=== PATIENT | female | born 1950 | race Caucasian/White ===

== ENCOUNTER 2017-12-15 13:21 | Outpatient (CLI) | payer MEDICARE, OTHER ==
[~2017-12-15 13:21] MED LIST: Gadobenate Dimeglumine 529 MG/1 ML (20ML VIAL) ONE
--- NOTE | 2017-12-15 16:34 | RAD ---
LUMBAR SPINE THREE VIEWS: 12/15/17 HISTORY: 67-year-old female with history of low back pain following a fall off bed one month ago with back tara n and left leg pain. COMPARISON: 01/17/15. FINDINGS: Multilevel disc osteophytosis with fairly marked disc space narrowing at L4-5 showing some progressio n from the prior study. No evidence for abnormal translation between flexion and extension. No eviden ce for acute fracture. IMPRESSION: Evidence for spondylosis with progressive narrowing at L4-5. No abnormal translation between flexion and extension. POS: [facility]
--- NOTE | 2017-12-16 09:24 | MRI ---
LUMBAR SPINE MRI WITH AND WITHOUT CONTRAST: INDICATIONS: Fall with low back pain. Left radiculopathy. FINDINGS: No acute compression fracture. No significant subluxation. The conus medullaris terminates at the T 12-L1 level. There is no acute disk space edema. There is mild marrow edema, localizing to the left posterior elements of L4, nonspecific. There is associated marrow enhancement of this region. Ther e is prior posterior decompression of L4-L5 and L5-S1. Multilevel bilateral degenerative facet hyper trophy is present, most pronounced at the lower lumbar spine, moderate in degree. Incidental note of small cysts of each kidney, incompletely evaluated. L5-S1: No significant compromise of the central canal or the neural foramina. L4-L5: No significant compromise of the central canal. There is a disk osteophyte complex with mild narrowing of each neural foramen, when combined with facet hypertrophy. L3-L4: There is a broad-based disk osteophyte, with a superimposed left subarticular zone disk protr usion, which obliterates the traversing left L4 nerve root and produces moderate left foraminal steno sis. Mild narrowing of the right neural foramen. There is moderate to severe central canal stenosis . L2-L3: There is a right subarticular disk protrusion impinging the traversing right L3 nerve root. Mild central canal stenosis is present. Minimal narrowing of each neural foramen is seen. L1-L2: No high grade compromise of central canal or neural foramina. IMPRESSION: 1. Prominent disk protrusions at the L2-3 and L3-L4 levels, as discussed above, with associated impi ngement upon traversing nerve roots. 2. Nonspecific edema and enhancement involving marrow of the left posterior elements of L4. This is at an operative site and, therefore, could relate to degenerative marrow edema from altered biomecha nics. Correlate clinically in this regard. 3. Small bilateral renal cysts are incompletely evaluated. POS: [facility]
== END 2017-12-15 13:22 | disposition home or self-care (01) ==
LOC: SCSMRI 13:21
PROVIDERS: ATTEND Neurological Surgery
DX: M47.26 Other spondylosis with radiculopathy, lumbar region (principal); M48.061 Spinal stenosis, lumbar region without neurogenic claudication; M51.16 Intervertebral disc disorders with radiculopathy, lumbar region; N28.1 Cyst of kidney, acquired
CPT/HCPCS: 72100; 72158; 82565; A9579

== ENCOUNTER 2018-10-30 11:45 | Inpatient (IN) | payer MEDICARE, OTHER ==
[2018-10-30 12:08] LABS: #Basophils 0.1 thou/uL (0.0-0.2); #Eosinphils 0.2 thou/uL (0.0-0.7); #Lymphocytes 2.7 thou/uL (1.20-3.40); #Monocytes 0.7 thou/uL (0.11-0.59); #Neutrophils 2.4 thou/uL (1.40-6.50); %Basophils 1.4 % (0.0-1.0); %Eosinophils 2.9 % (0.0-10.0); %Lymphocytes 44.3 % (21.0-51.0); %Monocytes 10.9 % (0.0-10.0); %Neutrophils 40.5 % (42.0-75.0); Mean Corpuscular HGB CONC 33.9 g/dL (32.0-36.0); Mean Corpuscular Volume 91.3 fL (78.0-98.0); Mean Platelet Volume 6.6 fL (7.4-10.4); Platelet Count 301 thou/uL (130-400); RBC Distribution Width 12.2 % (11.5-14.5); Red Blood Cell (RBC) Count 4.52 mill/uL (4.20-5.40)
--- NOTE | 2018-10-30 12:13 | RAD ---
EXAM: CHEST ONE VIEW HISTORY: Dizziness and chest pain COMPARISON: 08/29/2016 FINDINGS: The cardiac silhouette and pulmonary vasculature is within normal limits. The lungs are clear. Postsu rgical changes right shoulder are again seen. Degenerative changes are seen in the spine. Bilateral breast prostheses are noted. IMPRESSION: No acute cardiopulmonary process.
[2018-10-30] MEDS ORDERED: Magnesium 2 GM/50 ML BAG (IN WATER) ONE (12:25)
[2018-10-30 12:29] LABS: ALT (SGPT) 14 U/L (8-55); AST (SGOT) 14 U/L (5-34); Albumin 4.1 g/dL (3.4-4.8); Alkaline Phosphatase 88 U/L (40-150); Anion Gap 9 mmol/L (10-20); BUN (Urea Nitrogen) 16 mg/dL (9.8-20.1); Bilirubin, Total 0.4 mg/dL (0.2-1.2); CK (CPK) 63 U/L (29-168); Calc. Creatinine Clearance 0 mL/min (70-130); Calcium 9.9 mg/dL (7.8-10.44); Carbon Dioxide 27 mmol/L (23-31); Chloride 106 mmol/L (98-107); Estimated GFR-MDRD 46; Globulin 2.5 g/dL (2.4-3.5); Glucose 118 mg/dL (80-115); Potassium 3.8 mmol/L (3.5-5.1); Protein, Total 6.6 g/dL (6.0-8.3); Sodium 138 mmol/L (136-145)
[2018-10-30] MEDS ORDERED: Aspirin Chewable 81 MG TAB ONE (12:35)
[2018-10-30] MEDS ORDERED: Digoxin 0.5 MG/2 ML AMP ONE (12:35)
[2018-10-30] MEDS ORDERED: ISOVUE-370 76%-LOCM 1 ML ONE (12:47)
[2018-10-30 12:50] LABS: CKMB 2.4 ng/mL (0-6.6)
--- NOTE | 2018-10-30 13:15 | CT ---
EXAM: CT pulmonary angiogram with IV contrast and 3-D MIP reconstructions PROVIDED CLINICAL HISTORY: Chest pain COMPARISON: None FINDINGS: There is no evidence for central or segmental pulmonary embolus. The lungs are free of significant op acity. No pleural fluid or pneumothorax apparent. No evidence for thoracic lymph node enlargement. The airway appears patent and of normal caliber. The visualized portions of the upper abdomen demonst rate no acute findings. The osseous structures demonstrate no concerning lytic or blastic lesions. Bilateral breast implants with intracapsular rupture on the right. IMPRESSION: No evidence for central or segmental pulmonary embolus.
[2018-10-30] MEDS ORDERED: Metoprolol Tartrate 5 MG/5 ML VIAL ONE (13:28)
[2018-10-30] MEDS ORDERED: Cefepime 1 GM VIAL ONE (13:28)
[2018-10-30] MEDS ORDERED: Enoxaparin Sodium 80 MG/0.8 ML SYRINGE ONE (14:10)
[2018-10-30] MEDS ORDERED: Ondansetron PF 4 MG/2 ML Vial IVP PRN (15:40)
[2018-10-30 15:49] VITALS: BMI 27.7
[2018-10-30 16:17] LABS: Troponin I 0.221 ng/mL (< 0.028)
[2018-10-30] MEDS: Acetaminophen/Codeine 30-300mg Tablet PO PRN (16:51)
[2018-10-30] MEDS: Carvedilol 3.125 MG TAB PO SCH (18:08)
[2018-10-30] MEDS: Digoxin 0.5 MG/2 ML AMP SLOW IVP SCH (18:10)
--- NOTE | 2018-10-30 18:34 | HP ---
CHIEF COMPLAINT: Weakness and dizziness. HISTORY OF PRESENT ILLNESS: The patient is a 68-year-old female, who started feeling dizzy and weak last night. She was not short of breath. She did not have any chest pain, but she started having some back pain in her both scapular area. She took some antacids because she was feeling nauseated and went to bed, and she woke up feeling better, but when she got up and started moving around, she started having heart palpitations, and she came to the emergency room and was evaluated, and she was found to be in atrial fibrillation with RVR. She has a history of previous atrial fibrillations. She denied any vomiting. She denied any abdominal pain, but she had some chest tightness. Her primary care physician is Dr. Rusty Randhawa, and Dr. Guardado is her model and dye person. PAST MEDICAL HISTORY: Positive for; 1. History of atrial fibrillation. 2. Irritable bowel syndrome. PAST SURGICAL HISTORY: 1. Shoulder surgery on the right side. 2. Lumbar laminectomy. 3. Tubal ligation. 4. Appendectomy. 5. Breast implant surgery. PSYCHIATRIC HISTORY: Depression and anxiety. SOCIAL HISTORY: She never smoked. She never had any illicit drugs. She does not drink alcohol. FAMILY HISTORY: Positive for coronary artery disease and stroke. ALLERGIES: POISON RUBENS. CURRENT MEDICATIONS: None. Only vitamins. REVIEW OF SYSTEMS: A 12-point review of systems was done and it was negative except for those mentioned in the HPI. PHYSICAL EXAMINATION: VITAL SIGNS: Blood pressure is 109/85, pulse is 109, respiratory rate is 15. She is afebrile. HEENT: Her head is atraumatic and normocephalic. Eyes are PERRLA. Sclerae are nonicteric. Oral mucosa is moist. NECK: Supple. LUNGS: Clear. HEART: S1 and S2, irregularly irregular. No S3. No S4. ABDOMEN: Soft and nontender. Bowel sounds are present. No organomegaly. EXTREMITIES: No clubbing, cyanosis, or edema. Pulses on both tibialis posterior and dorsalis pedis arteries are similar bilaterally, good. NEUROLOGIC: She is alert and oriented x4. There are no any motor or sensory deficits. Cranial nerves are intact. LABORATORY DATA: Showed normal CBC and normal electrolytes. BUN of 16, creatinine 1.17. Troponin-I 0.227. BNP 588.4. Electrocardiogram personally reviewed by me, showed a ventricular rate of 141, atrial fibrillation. IMAGING STUDIES: Chest x-ray personally reviewed by me showed no acute cardiopulmonary process. A CT angiogram of the chest personally reviewed by me showed no evidence of central or segmental pulmonary embolus. There was some evidence of bilateral breast implants with intracapsular rupture on the right. IMPRESSION: 1. Recurrent atrial fibrillation with RVR. 2. Renal insufficiency, most likely this is prerenal, at least it is a new finding since her creatinine was 0.77 in August 2016. 3. Irritable bowel syndrome. 4. Elevated troponin-I at 0.227, which is most likely related to fast atrial fibrillation and elevated BNP level at 588.4, which is again most likely related to atrial fibrillation with RVR. PLAN: Full admission to the telemetry floor. Condition is fair. Activity, bedrest and bathroom privileges. IV normal saline 100 mL/hour. We will see whether hydration is going to help her creatinine to come down. We will continue her Lovenox, she was started, first dose in the emergency room and we will keep her on 80 mg twice a day with partial dose at 2100 hours today. The patient received a labetalol and magnesium and 0.5 of digoxin, we will continue digoxin two additional doses at 0.25 q.6 hours, then she will be on 0.25 p.o. dose in the morning. Cardiology is consulted and the emergency room doctor talked to Dr. Guardado about her. The patient was not on Cardizem because she was hypotensive. We are going to use SCDs. Job ID: [id number]
--- NOTE | 2018-10-30 18:34 | CON ---
DATE OF CONSULTATION: 10/30/2018 INDICATION FOR CONSULTATION: A 68-year-old female with atrial fibrillation with rapid ventricular response. HISTORY OF PRESENT ILLNESS: This very pleasant 68-year-old female, who has had history of atrial fibrillation in the past and underwent cardioversion, had been maintained on sinus rhythm. She had been maintained just on medical management. She was not on any significant antiarrhythmics and also the anticoagulation, I believe, had been held for some time now. She had been doing very well, and then, last night, she had noted she felt somewhat jittery and became short of breath and noticed that she had some discomfort between the intrascapular areas and was brought to the emergency room, was found to be in atrial fibrillation with rapid ventricular response. At this time, she remains in atrial fibrillation and is under better rate control with medical management at this time. Presently, she has been given digoxin. She has also been given dose of Lovenox. She is also on Coreg. She was given 5 mg of IV metoprolol in the emergency room and the heart rate is under better control, but she still remains in atrial fibrillation. Her EKG shows some minor nonspecific changes when she had atrial fibrillation with a rapid ventricular response, but no ST-segment elevation was noted. These are nonspecific changes with some T-wave flattening. Her cardiac enzymes also were slightly elevated, but most likely this is also associated with the atrial fibrillation. Troponin I was 0.227 and decreased down to 0.221. Her BNP was slightly elevated at 588. She has not had a repeat echocardiogram, this will be performed. We will evaluate the echo when it is available, to see the size of the left atrium and also left ventricular systolic function. At this time, we will continue to control the heart rate. At some point in time, she will need to undergo stress testing due to the abnormal EKG changes, and if there are any abnormalities, we will need to undergo cardiac catheterization. We will check this when she is more stable. She will have stress testing as well as the echocardiogram. PAST MEDICAL HISTORY: Please refer the notes dictated by the nurse practitionerBeth. SOCIAL HISTORY: Please refer the notes dictated by the nurse practitionerBeth. FAMILY HISTORY: Please refer the notes dictated by the nurse practitionerBeth. REVIEW OF SYSTEMS: Please refer the notes dictated by the nurse practitionerBeth. ALLERGIES: PLEASE REFER THE NOTES DICTATED BY THE NURSE PRACTITIONER, BETH GOLDEN. MEDICATIONS: Please refer the notes dictated by the nurse practitioner, Beth Golden. PHYSICAL EXAMINATION: GENERAL: Reveals a well-developed, well-nourished female, who is in no acute distress. VITAL SIGNS: At this time, she is afebrile. Heart rate is in the 90 to 100 range, respiratory rate is 17, O2 saturation is 95%, blood pressure is 114/68. HEENT: Unremarkable. NECK: Carotid pulses are present. I do not hear any bruits. CHEST: Actually clear to auscultation. I do not hear any rales, rhonchi, or wheezing. CARDIOVASCULAR: Irregular. I do not hear any gross murmurs. ABDOMEN: Soft, flat, nontender. Positive bowel sounds are present. EXTREMITIES: Showed no clubbing, cyanosis, or edema. Pedal pulses are present. NEUROLOGIC: She appears to be fully intact. SKIN: Warm and dry. IMAGING STUDIES: EKG as noted above. LABORATORY DATA: Also for pertinent findings, is also noted for the troponin I and for the BNP. IMPRESSION: 1. Atrial fibrillation with rapid ventricular response. She will be treated with medical management. She has been placed on digoxin. She was given IV beta-blockers. We will continue the beta-blockers, and we will switch over to p.o. oral anticoagulation. Most likely, she will need to undergo a repeat cardioversion and will be maintained on antiarrhythmic medications. When she converts and also if she is unable to control the rate, we will discuss her case with superintendent mechanical for possible ablation of the atrial fibrillation. 2. Slight elevation of the cardiac enzymes, which could be a type 2 myocardial infarction, but most likely this is due to demand ischemia associated with tachycardia. 3. Elevated BNP, which may also be due to some diastolic dysfunction or mild congestive heart failure associated with a rapid ventricular response. As far as her other medical issues are concerned, we will continue to follow her and monitor her very carefully. We will be more than happy to continue to follow the patient with you. Job ID: [id number]
[2018-10-30] MEDS ORDERED: Metoprolol Tartrate 5 MG/5 ML VIAL IVP PRN (18:43)
[2018-10-30] MEDS ORDERED: Digoxin 0.5 MG/2 ML AMP SLOW IVP SCH (20:00)
[2018-10-30 20:11] LABS: Troponin I 0.249 ng/mL (< 0.028)
[2018-10-30] MEDS ORDERED: Enoxaparin Sodium 40 MG/0.4 ML SYRINGE SC SCH ×2 (21:00)
[2018-10-31] MEDS: Digoxin 0.5 MG/2 ML AMP SLOW IVP SCH (00:29)
[2018-10-31 04:11] LABS: Anion Gap 7 mmol/L (10-20); BUN (Urea Nitrogen) 12 mg/dL (9.8-20.1); Calc. Creatinine Clearance 79 mL/min (70-130); Calcium 8.6 mg/dL (7.8-10.44); Carbon Dioxide 28 mmol/L (23-31); Chloride 108 mmol/L (98-107); Eosinophils 5 % (0-10); Estimated GFR-MDRD 64; Glucose 91 mg/dL (80-115); Lymphocytes 52 % (21-51); MDiff Complete? YES; Mean Corpuscular HGB CONC 33.7 g/dL (32.0-36.0); Mean Corpuscular Hemoglobin 31.1 pg (27.0-31.0); Mean Corpuscular Volume 92.1 fL (78.0-98.0); Mean Platelet Volume 6.8 fL (7.4-10.4); Monocytes 6 % (0-10); Neutrophil 37 % (42-75); Platelet Count 260 thou/uL (130-400); Platelet Morphology Comment Appears Adequate; Red Blood Cell (RBC) Count 4.19 mill/uL (4.20-5.40); Sodium 139 mmol/L (136-145); White Blood Cell (WBC) Count 5.8 thou/uL (4.8-10.8)
[2018-10-31] MEDS ORDERED: Digoxin 0.5 MG/2 ML AMP SLOW IVP SCH (06:45)
[2018-10-31] MEDS: Acetaminophen/Codeine 30-300mg Tablet PO PRN (08:45)
[2018-10-31] MEDS: Furosemide 20 MG TAB PO SCH (08:47)
[2018-10-31] MEDS: Enoxaparin Sodium 80 MG/0.8 ML SYRINGE SC SCH ×2 (08:47→20:11)
[2018-10-31] MEDS: Carvedilol 3.125 MG TAB PO SCH ×2 (08:48→16:19)
[2018-10-31] MEDS ORDERED: Enoxaparin Sodium 80 MG/0.8 ML SYRINGE SC SCH (09:00)
[2018-10-31] MEDS ORDERED: Enoxaparin Sodium 40 MG/0.4 ML SYRINGE SC SCH (09:00)
[2018-10-31] MEDS ORDERED: Digoxin 0.25 MG TAB PO SCH (09:00)
[2018-10-31 10:19] LABS: Troponin I 0.233 ng/mL (< 0.028)
--- NOTE | 2018-10-31 11:30 | PRG ---
DATE OF SERVICE: 10/31/2018 SUBJECTIVE: The patient is seen and examined at the bedside. She converted to sinus rhythm this morning at 7 o'clock. She feels good. Does not have much complaints to offer. She just had echocardiogram done and she is scheduled for a stress test today. OBJECTIVE: VITAL SIGNS: Blood pressure is 122/65, pulse is 62, temperature is 97.0, respirations 16, and O2 saturation is 97% on room air. HEENT: Head is atraumatic and normocephalic. Eyes are PERRLA. Sclerae are nonicteric. Oral mucosa is moist. NECK: Supple. LUNGS: Clear. HEART: S1 and S2 normal. No S3. No S4. ABDOMEN: Soft, nontender, and nondistended. EXTREMITIES: No clubbing, cyanosis, or edema. NEUROLOGIC: She is alert and oriented x4. There is no any motor or sensory deficits. LABORATORY DATA: White count of 5.8, hemoglobin 13.0, hematocrit 38.6, and platelet count is 260,000. Sodium 139, potassium 4.0, chloride 108, CO2 of 28, BUN 12, and creatinine 0.87. Troponin is 0.249 and 0.233. Third generation TSH was 1.42. IMPRESSION: 1. Recurrent atrial fibrillation converted to sinus rhythm. She is supposed to have a stress test today and echo was just finished. 2. Renal insufficiency, resolved. 3. Irritable bowel syndrome. 4. Elevated troponins secondary to atrial fibrillation, most likely. PLAN: Plan is to continue her monitoring on telemetry floor and discontinue IV fluids. Continue her digoxin. Continue her full dose of Lovenox. She was started on Coreg yesterday and we are going to continue that. Job ID: [id number]
--- NOTE | 2018-10-31 12:25 | PDOC.CPN ---
- Subjective Date: 10/31/18 Time: 12:29 Interval history: The pt seen and examined. No overnight events. No cardiac complaints. - Objective Allergies/Adverse Reactions: Allergies Allergy/AdvReac Type Severity Reaction Status Date / Time nickel Allergy Rash Verified 10/30/18 15:44 Visit Medications: Current Medications Acetaminophen/Codeine Phosphate (Tylenol #3) 1 tab PO Q6H PRN PRN Reason: Mild-Moderate Pain (1-5) Last Admin: 10/31/18 08:45 Dose: 1 tab Carvedilol (Coreg) 3.125 mg PO BID-WM [facility] Last Admin: 10/31/18 08:48 Dose: 3.125 mg Digoxin (Lanoxin) 0.25 mg PO DAILY [facility] Enoxaparin Sodium (Lovenox) 80 mg SC 0900,2099 [facility] Last Admin: 10/31/18 08:47 Dose: 80 mg Furosemide (Lasix) 20 mg PO DAILY [facility] Last Admin: 10/31/18 08:47 Dose: 20 mg Ondansetron HCl (Zofran) 4 mg IVP Q6H PRN PRN Reason: Nausea/Vomiting Vital Signs & Weight: Vital Signs Temp Pulse Resp BP Pulse Ox 10/31/18 11:03 97.8 F 65 15 116/56 L 100 10/31/18 08:17 97.0 F L 62 16 123/65 97 10/31/18 06:40 117 H 10/31/18 04:00 98.5 F 78 18 118/84 98 10/31/18 00:29 95 Weight 182 lb 9 oz - Physical Exam General: alert & oriented x3 Neck: supple neck Cardiac: regular rate and rhythm, S1/S2 Lungs: clear to auscultation Neuro: cranial nerve 2-12 intact Abdomen: unremarkable Skin: clear Musculoskeletal: normal range of motion - Labs Result Diagrams: 10/31/18 03:26 10/31/18 03:26 Troponin/CKMB CK-MB (CK-2) 2.4 ng/mL (0-6.6) 10/30/18 11:58 Troponin I 0.233 ng/mL (< 0.028) H 10/31/18 03:26 - Telemetry Sinus rhythms and dysrhythmias: sinus rhythm - Assessment/Plan Assessment/Plan: 1. recurrent Aifb with RVR - converted back to SR at 0700 this AM; On Digoxin 0.25mg po qd and Coreg 3.125mg BID; On Lovenox 80mg BID, which will be changed to PO OAC at discharge 2. elevated BNP - stable with RA; asymptomatic; Echo result is pending at this time; On Bblocker and Lasix 20mg qd; may start JESSICA/ARB with stable VS MAR reviewed * She was on flecainide 50mg BID and Xarelto at 1st afib episode Pt. seen and eval. by me. I agree with the A/p by the [employer]. Chest clear. RRR. gjm
[2018-11-01 06:01] LABS: #Eosinphils 0.3 thou/uL (0.0-0.7); #Lymphocytes 2.1 thou/uL (1.20-3.40); #Monocytes 0.6 thou/uL (0.11-0.59); #Neutrophils 2.1 thou/uL (1.40-6.50); %Basophils 0.5 % (0.0-1.0); %Eosinophils 5.3 % (0.0-10.0); %Lymphocytes 41.3 % (21.0-51.0); %Monocytes 11.9 % (0.0-10.0); %Neutrophils 41.1 % (42.0-75.0); Hemoglobin 13.2 g/dL (12.0-16.0); Mean Corpuscular Hemoglobin 30.9 pg (27.0-31.0); Mean Corpuscular Volume 90.6 fL (78.0-98.0); Platelet Count 252 thou/uL (130-400); RBC Distribution Width 11.8 % (11.5-14.5); Red Blood Cell (RBC) Count 4.29 mill/uL (4.20-5.40); White Blood Cell (WBC) Count 5.1 thou/uL (4.8-10.8)
[2018-11-01] MEDS: Furosemide 20 MG TAB PO SCH (06:01)
[2018-11-01] MEDS: Enoxaparin Sodium 80 MG/0.8 ML SYRINGE SC SCH (06:01)
[2018-11-01 06:26] LABS: Anion Gap 10 mmol/L (10-20); BUN (Urea Nitrogen) 15 mg/dL (9.8-20.1); Calc. Creatinine Clearance 87 mL/min (70-130); Calcium 9.1 mg/dL (7.8-10.44); Carbon Dioxide 27 mmol/L (23-31); Chloride 105 mmol/L (98-107); Estimated GFR-MDRD 72; Glucose 88 mg/dL (80-115); Potassium 4.2 mmol/L (3.5-5.1); Sodium 138 mmol/L (136-145)
--- NOTE | 2018-11-01 08:17 | CON ---
DATE OF CONSULTATION: PRIMARY CARE DOCTOR: Dr. Randhawa. PRIMARY OUTPATIENT RECEPTIONIST: Eloisa Guardado MD REASON FOR CARDIOLOGY CONSULT: Recurrent atrial fibrillation with rapid ventricular response. HISTORY OF PRESENT ILLNESS: Ms. Toro is 68-year-old female with a significant history of atrial fibrillation with cardioversion in 2012 and hyperlipidemia. The patient was doing relatively well. The patient had a history of atrial fibrillation with rapid ventricular response, status post cardioversion in 2013. Since then, she was doing well. No recurrent atrial fibrillation. She was taking the medication to suppress the patient's atrial fibrillation, which was discontinued about two years ago since she was continued to be in sinus rhythm. She was doing relatively well. She was busy at work and with christianity activities. However, since last night, she started having chest pain between the shoulder blade with nausea, fluttering in her chest. After she took the aspirin 2 tablets, she slept well, but this morning, she is still feeling weak and when she checked the vital signs, her blood pressure has been in the 70 to 80s in systolic with heart rate of 50 to 110s. She is drinking plenty of fluids. However, she continued feeling weak, so the patient presented to the emergency department for further evaluation and treatment. The patient was found to have atrial fibrillation with rapid ventricular response with heart rate 140. After she received digoxin 0.5 mg one time and metoprolol 5 mg IV push. The patient's heart rate went back to 90 to 100. Her vital signs at the ER have pain 100 to 110s over 60s to 80s. At this moment, the patient denies chest pain, heaviness, tightness, shortness of breath, nauseated, palpitation, or fluttering in her chest. She complained of mild dizziness with quick movement. The patient had echocardiogram done in 2012 for history of atrial fibrillation at that time. EF was 50% to 55%, mild mitral valve regurgitation, mild tricuspid regurgitation, atherosclerosis in the descending order. The patient had a stress test done in 2012, which was normal. PAST MEDICAL HISTORY: Atrial fibrillation in 2013, status post cardioversion; irritable bowel syndrome; hyperlipidemia; spinal stenosis; and tubal . SURGICAL HISTORY: 1. Cardioversion in 2013 for a history of atrial fibrillation. 2. Right shoulder surgery for torn rotator cuff. 3. Appendectomy. 4. Back surgery, L4-L5. 5. Tonsillectomy. 6. Breast surgery. FAMILY HISTORY: There is significant medical history of hypertension in her maternal side and the patient's mother has a history of diabetes also. SOCIAL HISTORY: She is . She is living with her . She has 3 children living well. She denied tobacco, EtOH, or illicit drug abuse. She drinks three cups of coffee in the morning. She drinks tons of flavored water through the day. She does not do exercise, but she is being active at home, work and christianity activities. ALLERGIES: SHE IS ALLERGIC TO NICKEL. HOME MEDICATIONS: She does not take any prescribed medication. She takes multivitamin and supplement at home. REVIEW OF SYSTEMS: 12-point review of systems is negative unless otherwise mentioned in the HPI. PHYSICAL EXAMINATION: VITAL SIGNS: Blood pressure 114/68, temperature 98.1, pulse is 97 with atrial fibrillation, respiratory rate 17, and O2 saturation 95% on room air. GENERAL: The patient is alert and oriented x4, not in acute distress. HEENT: Head, normocephalic and atraumatic. Eyes; extraocular muscle movement intact. ENT and mouth, oral and nasal mucosa moist without lesion. NECK: Supple. Normal range of motion. No JVD. RESPIRATORY: Clear to auscultate bilaterally. No wheezing, rales, or rhonchi noted. CARDIOVASCULAR: Irregularly irregular. No S3 or S4. No significant murmur, hives, or thrill noted. 2+ pulses in bilateral lower extremity. No edema in lower extremities. Carotid pulses are present without bruits or thrill. ABDOMEN: Soft, nontender. No mass to palpitate. Bowel sounds are present. MUSCULOSKELETAL: The patient is able to move all extremities. The patient denied claudication. SKIN: Warm and dry. No lesion, rash, or erythema noticed. PSYCHIATRIC: The patient's mood is appropriate. NEUROLOGIC: The patient is alert and oriented x4. Nonfocal. LABORATORY DATA: WBC 6.0, hemoglobin 14.0, hematocrit 41.3, platelet of 301. Sodium 138, potassium 3.8, BUN 16, creatinine 1.17, glucose 118, AST 14, ALT 14. BNP is 588. CK-MB 2.4. Troponin 0.227 and the second one 0.221. The patient's chest thoracic CTA shows no evidence of central segment of pulmonary embolism. The patient's chest x-ray shows no acute cardiopulmonary process. 12-lead EKG at the ER showed atrial fibrillation with heart rate 140s. No ST-segment change or T-wave inversion. The telemetry record at this moment showing the patient has atrial fibrillation with heart rate in 90s to [address]-segment change or T-wave inversion. ASSESSMENT AND PLAN: 1. atrial fibrillation with rapid ventricular response. After the patient received metoprolol and digoxin IV push, the patient's heart rate was going down to 90 to 100 with atrial fibrillation. At this moment, the patient is asymptomatic. We would like to continue digoxin low-dose and maintain on dose 0.25 mg once a day p.o. every morning. If the patient's blood pressure is stable, we would like to go ahead and start low dose beta irena. She is on Lovenox 80 mg twice a day as a severe prophylaxis dose for the atrial fibrillation. The patient is going to have echocardiograms and stress test done during this admission. 2. Elevated BNP. The patient's BNP today was 588. The patient denied any shortness of breath, abdominal bloating, or edema in the lower extremities. The patient's echocardiogram in 2012 showed normal ejection fraction and no diastolic dysfunction at that time. She is going to have another echocardiogram hopefully tomorrow. We would like to see how her heart function is doing. 3. Thank you very much for allowing the Cardiology Service to participate in the care of this patient. We will follow along the patient's care team and make further recommendations as appropriate. Job ID: [id number]
[2018-11-01] MEDS ORDERED: Digoxin 0.25 MG TAB PO SCH (09:00)
[2018-11-01] MEDS ORDERED: ADENOSINE 60 MG/20 ML VIAL ONE (10:31)
[2018-11-01] MEDS: Carvedilol 3.125 MG TAB PO SCH (11:34)
--- NOTE | 2018-11-01 11:39 | NM ---
EXAM: Nuclear medicine cardiac perfusion examination with ejection fraction HISTORY: Recurrent atrial fibrillation TECHNIQUE: Rest images: 10.5 mCi technetium 99m sestamibi Stress images: 31.7 mCi of technetium 9M sestamibi; Adenosine COMPARISON: 08/30/2016 FINDINGS: Tomographic images: No fixed or reversible perfusion defects. Gated images: Normal wall motion and ejection fraction of 60%. EDV: 94 mL LHR: 0.3 TID: 1.0 IMPRESSION: No evidence of ischemia
--- NOTE | 2018-11-01 12:48 | PDOC.CPN ---
- Subjective Date: 11/01/18 Time: 12:45 Interval history: The pt seen and examined. No overnight events. No cardiac complaints. - Objective Allergies/Adverse Reactions: Allergies Allergy/AdvReac Type Severity Reaction Status Date / Time nickel Allergy Rash Verified 10/30/18 15:44 Visit Medications: Current Medications Acetaminophen/Codeine Phosphate (Tylenol #3) 1 tab PO Q6H PRN PRN Reason: Mild-Moderate Pain (1-5) Last Admin: 10/31/18 08:45 Dose: 1 tab Carvedilol (Coreg) 3.125 mg PO BID-WM [facility] Last Admin: 11/01/18 11:34 Dose: 3.125 mg Digoxin (Lanoxin) 0.25 mg PO DAILY [facility] Last Admin: 11/01/18 11:34 Dose: 0.25 mg Enoxaparin Sodium (Lovenox) 80 mg SC 0900,2099 [facility] Last Admin: 11/01/18 06:01 Dose: 80 mg Furosemide (Lasix) 20 mg PO DAILY [facility] Last Admin: 11/01/18 06:01 Dose: 20 mg Ondansetron HCl (Zofran) 4 mg IVP Q6H PRN PRN Reason: Nausea/Vomiting Vital Signs & Weight: Vital Signs Temp Pulse Resp BP Pulse Ox 11/01/18 11:34 74 11/01/18 11:30 74 16 126/60 99 11/01/18 08:00 98.0 F 66 18 113/66 98 11/01/18 07:15 98 11/01/18 03:15 98.3 F 67 16 117/69 96 Weight 182 lb 9 oz - Labs Result Diagrams: 11/01/18 05:17 11/01/18 05:17 Troponin/CKMB CK-MB (CK-2) 2.4 ng/mL (0-6.6) 10/30/18 11:58 Troponin I 0.233 ng/mL (< 0.028) H 10/31/18 03:26 - Assessment/Plan Assessment/Plan: 1. recurrent Aifb with RVR - converted back to SR at 0700 on 10/31/2018; On Digoxin 0.25mg po qd and Coreg 3.125mg BID; On Lovenox 80mg BID, which will be changed to Eliquis 5mg BId; 2. Acute on Chronic diastolic HF - stable with RA; asymptomatic;On Bblocker and Lasix 20mg qd;will start Lisinopril 5mg qd from today 3. Anxiety/depression MAR reviewed * Echo on 10/31/2018 with EF 55-60%, grade I dd, mild dilated LA, trace MR, mild TR * Stress test on 11/01/2018 showed no reversible ischemia with EF 60% * From Cardiac standpoint, the pt is stable to d/c home. The pt will f/u with Dr Guardado' office within 2-4 wks. Pt. seen and eval. by me. I agree with the A/P by the LINUX SERVER ADMINISTRATOR. RRR. chest clear.
[2018-11-01] MEDS ORDERED: Lisinopril 5 MG TAB PO SCH (13:00)
--- NOTE | 2018-11-01 15:21 | DIS ---
DATE OF ADMISSION: 10/30/2018 DATE OF DISCHARGE: 11/01/2018 TRANSFER OF CARE. PRIMARY CARE PHYSICIAN: Rusty Randhawa MD DISCHARGED: Home. FINAL DIAGNOSES: Atrial fibrillation with rapid ventricular response, now in regular sinus rhythm; acute kidney injury, resolved; dyslipidemia and diastolic dysfunction. DISCHARGE MEDICATIONS: 1. Lisinopril 5 mg a day. 2. Lasix 20 mg a day. 3. Digoxin 0.25 mg a day. 4. Coreg 3.125 mg twice a day. 5. Eliquis 5 mg p.o. b.i.d. ALLERGIES: NO KNOWN MEDICAL ALLERGIES. CODE STATUS: Full. DIET: Heart healthy. PENDING AT THE TIME OF DISCHARGE: Nothing. HOSPITAL COURSE: The patient was admitted to the hospital to [facility] with weakness and dizziness. She was found to be in atrial fibrillation, rapid ventricular response. She did have some chest tightness. Her EKG showed a ventricular rate of 140, BUN 16, creatinine 1.17 in the past, normal. Troponins elevated at 0.227. BNP mildly elevated 588. She was seen in consultation by Dr. Jason Guardado, Cardiology. She was placed on digoxin given IV beta irena switched to p.o. beta blockers with p.o. oral anticoagulation. She underwent a nuclear medicine stress test, which was negative for ischemia. She underwent an echocardiogram, which showed grade 1/3 diastolic dysfunction. Currently, her vital signs are normal. She feels well. She has been released for discharge by Cardiology. Prescriptions have been written. PROCEDURES: None. FOLLOWUP: Follow up in [address] Guardado. Follow up in 1 week by primary care provider. Job ID: [id number]
[2018-11-01 15:30] VITALS: BP 122/69; TEMP 98.1
[2018-11-01] MEDS ORDERED: Apixaban 5 MG TAB PO SCH (21:00)
[2018-11-02] MEDS ORDERED: Lisinopril 5 MG TAB PO SCH (09:00)
== END 2018-11-01 16:20 | disposition home or self-care (01) | DRG 308 ==
LOC: ERS 11:45 → 2NO 14:22
PROVIDERS: ADMIT Internal Medicine; ATTEND Internal Medicine
DX: I48.91 Unspecified atrial fibrillation (principal); I50.33 Acute on chronic diastolic (congestive) heart failure; N17.9 Acute kidney failure, unspecified; F32.9 Major depressive disorder, single episode, unspecified; F41.9 Anxiety disorder, unspecified; K58.9 Irritable bowel syndrome, unspecified; I95.9 Hypotension, unspecified; E78.5 Hyperlipidemia, unspecified; I08.1 Rheumatic disorders of both mitral and tricuspid valves; Z98.51 Tubal ligation status; Z90.49 Acquired absence of other specified parts of digestive tract; Z88.8 Allergy status to other drugs, medicaments and biological substances
CPT/HCPCS: 36415; 71045; 71275; 78452; 80048; 80053; 82550; 82553; 83880; 84443; 84484; 85025; 93005; 93017; 93306; 96365; 96372; 96375; A9500; J0153; J0692; J1160; J1650; J3475; Q9966

== ENCOUNTER 2020-05-10 16:52 | Outpatient (CLI) | payer MEDICARE, OTHER ==
[2020-05-10 19:59] LABS: Hemoglobin 13.1 g/dL (12.0-15.5); Mean Corpuscular HGB CONC 32.9 g/dL (32.0-36.0); Mean Corpuscular Hemoglobin 30.3 pg (27.0-33.0); Mean Corpuscular Volume 92.1 fl (81.6-98.3); Mean Platelet Volume 9.6 fl (7.4-10.4); Platelet Count 308 10x3/uL (150-450); RBC Distribution Width 12.5 % (11.5-14.5); Red Blood Cell (RBC) Count 4.32 10x6/uL (3.90-5.03)
[2020-05-10 20:01] LABS: Anion Gap 13 mmol/L (10-20); BUN (Urea Nitrogen) 16 mg/dL (9.8-20.1); Calc. Creatinine Clearance 0 mL/min (70-130); Carbon Dioxide 27 mmol/L (23-31); Chloride 103 mmol/L (98-107); INR-International Normal Ratio 0.9; PTT 25.2 sec (22.0-33.0); Potassium 4.3 mmol/L (3.5-5.1); Prothrombin Time 10.2 sec (9.5-12.1); Sodium 139 mmol/L (136-145)
[2020-05-10 20:02] LABS: Calcium 9.4 mg/dL (7.8-10.44); Glucose 93 mg/dL (83-110)
[2020-05-11 02:10] LABS: SARS-CoV-2 PCR by NAA Not Detected (NotDetected)
== END 2020-05-10 16:53 | disposition home or self-care (01) ==
LOC: LABBT 16:52
PROVIDERS: ATTEND Neurological Surgery
DX: Z01.812 Encounter for preprocedural laboratory examination (principal); M51.26 Other intervertebral disc displacement, lumbar region; M48.061 Spinal stenosis, lumbar region without neurogenic claudication; Z20.822 Contact with and (suspected) exposure to COVID-19
CPT/HCPCS: 80048; 85027; 85610; 85730; U0003; U0005; 87635

== ENCOUNTER 2020-05-14 05:27 | Day surgery (SDC) | payer MEDICARE, OTHER ==
[2020-05-10 13:32] VITALS: BMI 27.8
[2020-05-14] MEDS ORDERED: EPINEPHrine 1 MG/ML AMP ONE (06:38)
[2020-05-14] MEDS ORDERED: Thrombin 5000 UNITS/5 ML VIAL ONE (06:38)
[2020-05-14] MEDS ORDERED: Bupivacaine PF 0.5% 30 ML VIAL ONE (06:38)
[2020-05-14] MEDS ORDERED: Fentanyl 100 MCG/2 ML VIAL ONE ×2 (06:53→10:08)
[2020-05-14] MEDS ORDERED: Ondansetron PF 4 MG/2 ML Vial ONE (07:02)
[2020-05-14] MEDS ORDERED: PHENYLEPHRINE-NS 100 MCG/ML 10 ML SYRINGE ONE (07:02)
[2020-05-14] MEDS ORDERED: Dexamethasone 20 MG/5 ML VIAL ONE (07:02)
[2020-05-14] MEDS ORDERED: PROPOFOL 200 MG/20 ML VIAL ONE (07:02)
[2020-05-14] MEDS ORDERED: Rocuronium Bromide 10 MG/ML (10ML VIAL) ONE (07:02)
[2020-05-14] MEDS ORDERED: Glycopyrrolate 0.2 MG/ML 5 ML SYRINGE ONE (07:02)
[2020-05-14] MEDS ORDERED: Ketorolac Tromethamine 30 MG/ML VIAL ONE (07:02)
[2020-05-14] MEDS ORDERED: HYDROcodone/Acetaminophen 5/325 mg Tablet ONE (11:03)
== END 2020-05-14 12:28 | disposition home or self-care (01) ==
LOC: SDC 05:27
PROVIDERS: ATTEND Neurological Surgery
PROC: 00NY0ZZ Release Lumbar Spinal Cord, Open Approach (ICD-10-PCS; principal; 2020-05-14)
PROC: 0ST20ZZ Resection of Lumbar Vertebral Disc, Open Approach (ICD-10-PCS; 2020-05-14)
DX: M51.16 Intervertebral disc disorders with radiculopathy, lumbar region (principal); M48.062 Spinal stenosis, lumbar region with neurogenic claudication; Z79.899 Other long term (current) drug therapy; Z88.8 Allergy status to other drugs, medicaments and biological substances
CPT/HCPCS: 76000; J0171; J0690; J1100; J1885; J2405; J2704; J3010; J3370; J3490; S0020

== ENCOUNTER 2020-07-22 11:07 | Observation (INO) | payer MEDICARE, OTHER ==
[2020-07-22] MEDS ORDERED: Aspirin Chewable 81 MG TAB ONE (11:36)
[2020-07-22] MEDS ORDERED: Nitroglycerin 2% Ointment 1 INCH/1 GM Packet ONE (11:36)
[2020-07-22 11:48] LABS: #Basophils 0.1 thou/uL (0.0-0.2); #Eosinphils 0.2 thou/uL (0.0-0.7); #Lymphocytes 1.9 thou/uL (1.20-3.40); #Monocytes 0.6 thou/uL (0.11-0.59); #Neutrophils 2.1 thou/uL (1.40-6.50); %Basophils 1.2 % (0.0-1.0); %Eosinophils 4.2 % (0.0-10.0); %Lymphocytes 39.7 % (21.0-51.0); %Monocytes 11.5 % (0.0-10.0); %Neutrophils 43.4 % (42.0-75.0); Hemoglobin 13.4 g/dL (12.0-16.0); Mean Corpuscular HGB CONC 34.6 g/dL (32.0-36.0); Mean Corpuscular Hemoglobin 31.5 pg (27.0-31.0); Mean Corpuscular Volume 91.1 fL (78.0-98.0); Mean Platelet Volume 6.7 fL (7.4-10.4); Platelet Count 248 thou/uL (130-400); RBC Distribution Width 11.8 % (11.5-14.5); Red Blood Cell (RBC) Count 4.25 mill/uL (4.20-5.40); White Blood Cell (WBC) Count 4.9 thou/uL (4.8-10.8)
[2020-07-22 12:07] LABS: ALT (SGPT) 15 U/L (8-55); AST (SGOT) 15 U/L (5-34); Albumin 4.1 g/dL (3.4-4.8); Alkaline Phosphatase 81 U/L (40-110); Anion Gap 14 mmol/L (10-20); BUN (Urea Nitrogen) 18 mg/dL (9.8-20.1); Bilirubin, Total 0.5 mg/dL (0.2-1.2); Calc. Creatinine Clearance 0 mL/min (70-130); Calcium 9.5 mg/dL (7.8-10.44); Carbon Dioxide 23 mmol/L (23-31); Chloride 105 mmol/L (98-107); Globulin 2.9 g/dL (2.4-3.5); Glucose 87 mg/dL (83-110); Lipase 16 U/L (8-78); Potassium 3.8 mmol/L (3.5-5.1); Sodium 138 mmol/L (136-145)
[2020-07-22] MEDS ORDERED: Acetaminophen 500 MG TAB ONE (12:12)
[2020-07-22] MEDS ORDERED: Nitroglycerin 0.4 MG TAB (25 Tab Bottle) SL PRN (13:46)
[2020-07-22] MEDS ORDERED: Enoxaparin Sodium 40 MG/0.4 ML SYRINGE SC SCH (14:00)
[2020-07-22 14:38] LABS: Hemoglobin A1c 5.1 % (4.0-6.0)
[2020-07-22 15:49] VITALS: BMI 27.9
[2020-07-22 19:13] LABS: Troponin I Less than 0.010 ng/mL (< 0.028)
[2020-07-22] MEDS ORDERED: Ondansetron ODT 4 MG TAB SL PRN (19:30)
[2020-07-22] MEDS ORDERED: Ondansetron PF 4 MG/2 ML Vial IVP PRN (19:30)
[2020-07-22] MEDS: Acetaminophen 325 MG TAB PO PRN (19:39)
[2020-07-22] MEDS ORDERED: traMADol HCl 50 MG TAB PO SCH (21:00)
[2020-07-23 06:15] LABS: Anion Gap 10 mmol/L (10-20); BUN (Urea Nitrogen) 20 mg/dL (9.8-20.1); Calc. Creatinine Clearance 80 mL/min (70-130); Calcium 8.7 mg/dL (7.8-10.44); Carbon Dioxide 22 mmol/L (23-31); Cardiac Risk 4.4 (Less than 4.5); Chloride 110 mmol/L (98-107); Cholesterol 179 mg/dl (< 200 Desired); Glucose 85 mg/dL (83-110); HDL Cholesterol 41 mg/dL (>60 Neg Risk); LDL Cholesterol, Calculated 117 mg/dL; Magnesium 2.1 mg/dL (1.6-2.6); Potassium 3.9 mmol/L (3.5-5.1); Sodium 138 mmol/L (136-145); Triglycerides 105 mg/dL (Less than 150)
[2020-07-23] MEDS ORDERED: Regadenoson 0.4 MG/5 ML SYRINGE ONE (09:51)
[2020-07-23] MEDS: Acetaminophen 325 MG TAB PO PRN (11:26)
[2020-07-23] MEDS: Aspirin Chewable 81 MG TAB PO SCH (11:26)
[2020-07-23] MEDS: Enoxaparin Sodium 40 MG/0.4 ML SYRINGE SC SCH (11:27)
[2020-07-23] MEDS ORDERED: traMADol HCl 50 MG TAB PO PRN (13:02)
[2020-07-23 13:14] LABS: SARS-CoV-2 PCR by NAA Not Detected (NotDetected)
[2020-07-24] MEDS: Enoxaparin Sodium 40 MG/0.4 ML SYRINGE SC SCH (08:30)
[2020-07-24] MEDS: Aspirin Chewable 81 MG TAB PO SCH (08:30)
[2020-07-24 12:40] VITALS: BP 121/74; TEMP 98.5
== END 2020-07-24 12:09 | disposition home or self-care (01) ==
LOC: ERS 11:07 → 2SW 12:27
PROVIDERS: ADMIT Internal Medicine; ATTEND Internal Medicine
DX: R07.89 Other chest pain (principal); I44.2 Atrioventricular block, complete; I48.0 Paroxysmal atrial fibrillation; I50.30 Unspecified diastolic (congestive) heart failure; E78.5 Hyperlipidemia, unspecified; I45.10 Unspecified right bundle-branch block; I08.8 Other rheumatic multiple valve diseases; E78.00 Pure hypercholesterolemia, unspecified; K58.9 Irritable bowel syndrome, unspecified; Z79.82 Long term (current) use of aspirin; Z79.899 Other long term (current) drug therapy; Z91.09 Other allergy status, other than to drugs and biological substances; Z20.822 Contact with and (suspected) exposure to COVID-19
CPT/HCPCS: 71045; 78452; 80048; 80053; 80061; 83036; 83690; 83735; 83880; 84484 ×2; 85025; 85379; 93005; 93017; 93306; 94760 ×2; 99285; A9500; U0003; U0005; 36415; 96372; G0378; J1650; J2785

== ENCOUNTER 2022-05-20 08:25 | Outpatient (CLI) | payer MEDICARE, OTHER | END 2022-05-20 08:26 | disposition home or self-care (01) | LOC: BICMAMMO 08:25 | PROVIDERS: ATTEND Physician Assistant | DX: N63.13 Unspecified lump in the right breast, lower outer quadrant (principal) | CPT/HCPCS: 76642; 77066; G0279 ==

== ENCOUNTER 2022-06-03 08:36 | Outpatient (CLI) | payer MEDICARE, OTHER | END 2022-06-03 08:37 | disposition home or self-care (01) | LOC: BICMRI 08:36 | PROVIDERS: ATTEND Physician Assistant | DX: N63.13 Unspecified lump in the right breast, lower outer quadrant (principal) | CPT/HCPCS: 82565; C8908; A9577 ==

== ENCOUNTER 2023-01-21 10:35 | Outpatient (CLI) | payer MEDICARE, OTHER | END 2023-01-21 10:36 | disposition home or self-care (01) | LOC: BICRAD 10:35 | PROVIDERS: ATTEND Nurse Practitioner Family | DX: M25.561 Pain in right knee (principal); M17.11 Unilateral primary osteoarthritis, right knee ==

== ENCOUNTER 2023-11-13 09:46 | Outpatient (CLI) | payer MEDICARE | END 2023-11-13 09:47 | disposition home or self-care (01) | LOC: BICMAMMO 09:46 | PROVIDERS: ATTEND Internal Medicine | DX: N64.4 Mastodynia (principal); Z98.82 Breast implant status | CPT/HCPCS: 76642; 77066; G0279 ==